=== PATIENT | female | born 1995 | race Caucasian/White ===

== ENCOUNTER 2017-06-26 16:16 | Emergency (ER) | payer BC ==
[~2017-06-26] VITALS: Ht 165.1 cm; Wt 91.0 kg
[~2017-06-26 16:16] MED LIST: ACET-1256 PO; ONDA4TAB7 SL
[2017-06-26 16:30] VITALS: TEMP 36.8; Ht 165.1 cm; Wt 91.0 kg
--- NOTE | 2017-06-26 17:10 | DIAGNOSTIC IMAGING REPORT ---
HEAD CT NONCONTRAST CT DOSE: 537.48 mGy.cm HISTORY: L ear pain s/p trauma. TECHNIQUE: Multiaxial CT images of the head were performed without the use of intravenous contrast. Automated exposure control was utilized for this study. A dose lowering technique was utilized adhering to the principles of ALARA. Comparison: None. Findings: The paranasal sinuses and mastoid air cells are clear. The calvarium and skull base are intact. The ventricles and sulci are within normal limits. There is no mass, hematoma, midline shift, or acute infarct. Impression: No acute intracranial abnormality. Electronically signed by: David Jaeger M.D. 06/26/2017 5:08 PM Dictated Date/Time: 06/26/2017 5:06 PM
--- NOTE | 2017-06-26 17:56 | EMERGENCY ROOM VISIT NOTE ---
History First contact with patient: 16:37 Chief Complaint: EAR PAIN Stated Complaint: CONTUSION TO LEFT EAR, [facility] REFERRED History of Present Illness The patient is a 22 year old female who presents to the Emergency Room via private vehicle with complaints of "contusion to left ear, [facility] ". The patient states that she has had a few incidences of trauma/injuries to the head/left ear region. She notes that she was referred here today by [facility]. She states that at the end of last week, she was sitting at her chair when she bent down and when she moved her head she hit a frame. She states that the second time she hit her head but does not remember as it was not a significant event however she also was intoxicated Friday evening and notes that she may have hit her head again then. She now for the past 2 days note slight discomfort in the superior most portion of the left ear. She states it feels like a bruise and also at the entrance to the ear. She states that her hearing is fine there is just some pain. There is no headache. She denies any nausea or vomiting. She rates her overall pain currently is a 4/10. She denies chance of . Review of Systems A complete 6-point Review of Systems was discussed with the patient, with pertinent positives and negatives listed in the History of Present Illness. All remaining Review of Systems questions can be considered negative unless otherwise specified. Past Medical/Surgical History Medical Problems: (1) No Known Active Medical Problems Social History Smoking Status: Never Smoker Marital Status: single Housing Status: lives with family Occupation Status: student Current/Historical Medications No Active Prescriptions or Reported Meds Physical Exam Vital Signs Date Time Temp Pulse Resp B/P (MAP) Pulse Ox O2 Delivery O2 Flow Rate FiO2 06/26/17 18:06 69 16 107/69 100 06/26/17 16:30 36.8 103 17 149/105 99 Room Air Physical Exam VITAL SIGNS - Vital signs and nursing notes were reviewed. Stable. GENERAL - 22-year-old female appearing her stated age who is in no acute distress. Communicates well with provider and answers questions appropriately. SKIN - Small external ear bruise. Skin intact. HEAD - NC/AT. Tenderness noted preauricularly and over the temporal region. EYES - PERRL with EOMI bilaterally. Sclera anicteric. Palpebral conjunctiva pink and moist with no injection noted. EARS - No deformities of external structures noted on gross examination bilaterally. Tragus tenderness to palpation noted at the L tragus. External auditory canals without discharge or otorrhea. Tympanic membranes pearly fang without retraction or bulging. No fluid or purulent material visualized behind the TM. Handle of malleus, umbo, cone of light, pars tensa/flaccid all easily visualized. Small amount of skin color change noted to superior portion of L ear externally just inferior to helix. No hematoma or fluctuant area noted. skin is intact. NOSE - Midline and without cyanosis. No epistaxis or purulent drainage noted. MOUTH/OROPHARYNX - Without perioral cyanosis. Medical Decision & Procedures ER Provider Diagnostic Interpretation: HEAD CT NONCONTRAST CT DOSE: 537.48 mGy.cm HISTORY: L ear pain s/p trauma. TECHNIQUE: Multiaxial CT images of the head were performed without the use of intravenous contrast. Automated exposure control was utilized for this study. A dose lowering technique was utilized adhering to the principles of ALARA. Comparison: None. Findings: The paranasal sinuses and mastoid air cells are clear. The calvarium and skull base are intact. The ventricles and sulci are within normal limits. There is no mass, hematoma, midline shift, or acute infarct. Impression: No acute intracranial abnormality. Electronically signed by: David Jaeger M.D. 06/26/2017 5:08 PM Dictated Date/Time: 06/26/2017 5:06 PM Medical Decision Patient was seen and evaluated as above. She presents to us today referred by [facility] with pain overlying the left ear, and left temporal regions. She is nontoxic on exam, and has a GCS of 15. However, clinical examination is concerning for about a potential fracture just anterior to the patient's left ear is there is notable tenderness preauricular lesion over the temporal region. Because the patient's history of not remembering during Friday with the potential intoxicated/inebriated event I concerned about the significance of the trauma she may have sustained. Benefits versus risk of obtaining a CT of the patient's head was discussed, and the decision was made to scan. Results as above. There is no acute fracture, dislocation or intracranial injury. The patient's left ear shows no signs of hematoma, rather a small bruises noted. I discussed the case with the attending physician, and subsequently the on-call your nose and throat surgeon, Dr. Nur. He recommended that the patient follow-up with [facility] tomorrow given the clinical absence of a hematoma, and he is in the office all day tomorrow noting that if [facility] noted development of a hematoma he would be happy to see the patient. I believe that follow-up in the outpatient setting with [facility] is warranted as currently the patient just has a small bruise overlying the ear however this time passes she may develop a small hematoma. I recommended that the patient be placed in a pressure dressing overlying the ear however she declined. She was educated upon management, educated upon worrisome symptoms in which to return, had questions answered prior to discharge, and was discharged home in good condition. In the evaluation and treatment of this patient, the following differential diagnoses were considered: Concussion, Contrecoup Injury, Brain Tumor, Depression, Encephalitis, Hypothyroidism, Meningitis, CVA, TIA, Migraine, Cluster Headache, Intracranial Abnormality, Intracranial Hemorrhage, Subdural Hematoma, Subarachnoid Hemorrhage, Hydrocephalus. Impression Primary Impression: Trauma to ear Departure Information Dispostion Home / Self-Care Condition GOOD Prescriptions No Active Prescriptions or Reported Meds Referrals No Doctor, Assigned (PCP) David Nur M.D. [facility] Patient Instructions My [facility] Additional Instructions You were seen in the emergency Department for trauma to her ear. At this time there is no evidence of a drainable collection of fluid. I do recommend following up with [facility] tomorrow to be evaluated for any collection of fluid that may develop. If this occurs please follow-up with the ear nose and throat surgeon listed above. He notes that he has office visits throughout the day tomorrow so in the event that this would need to be drained you may go to him. It is important to note that at this time there is no drainable collection. It looks good. Please return with any new/concerning symptoms.
[2017-06-26 18:06] VITALS: BP 107/69; PULSE 69; O2SAT 100
== END 2017-06-26 18:08 | disposition home or self-care (01) ==
LOC: C.EDB 16:20 → C.EDD 18:08
DX: S00.432A Contusion of left ear, initial encounter (principal); W22.8XXA Striking against or struck by other objects, initial encounter